=== PATIENT | female | born 1960 | race Caucasian/White ===

== ENCOUNTER → 2016-10-16 | Outpatient (CLI) | payer OTHER ==
[2016-10-16 13:52] LABS: ABSOLUTE BASOPHILS # (AUTO) 0.1 10^3/uL (0.0-0.2); ABSOLUTE EOSINOPHILS # (AUTO) 0.2 10^3/uL (0.0-0.6); ABSOLUTE LYMPHOCYTES (AUTO) 2.4 10^3/uL (0.5-4.7); ABSOLUTE MONOCYTES (AUTO) 0.6 10^3/uL (0.1-1.4); ABSOLUTE NEUT (AUTO) 5.5 10^3/uL (1.7-8.2); BASOPHILS % (AUTO) 0.7 % (0-2); EOSINOPHILS % (AUTO) 1.7 % (0-6); HEMOGLOBIN 12.7 g/dL (12.0-15.5); HGB HCT DIFFERENCE -0.9; LYMPHOCYTES % (AUTO) 27.3 % (13-45); MEAN CORPUSCULAR HEMOGLOBIN 27.9 pg (27.0-33.4); MEAN CORPUSCULAR HGB CONC 32.6 g/dL (32.0-36.0); MEAN CORPUSCULAR VOLUME 86 fl (80-97); MONOCYTES % (AUTO) 6.6 % (3-13); RED BLOOD COUNT 4.56 10^6/uL (3.72-5.28); RED CELL DISTRIBUTION WIDTH 14.4 % (11.5-14.0); SEGMENTED NEUTROPHILS % (AUTO) 63.7 % (42-78); WHITE BLOOD COUNT 8.7 10^3/uL (4.0-10.5)
== END ==
LOC: OD 12:32
PROVIDERS: ATTEND Specialist
DX: R10.9 Unspecified abdominal pain (principal); D50.9 Iron deficiency anemia, unspecified
CPT/HCPCS: 36415; 85025

== ENCOUNTER → 2016-10-22 | Outpatient (CLI) | payer OTHER ==
[2016-10-22 17:08] LABS: ALANINE AMINOTRANSFERASE 34 U/L (9-52); ALBUMIN 4.4 g/dL (3.5-5.0); ALKALINE PHOSPHATASE 135 U/L (38-126); ANION GAP 13 (5-19); ASPARTATE AMINO TRANSFERASE 24 U/L (14-36); BILIRUBIN,DIRECT 0.3 mg/dL (0.0-0.4); BILIRUBIN,TOTAL 0.8 mg/dL (0.2-1.3); BLOOD UREA NITROGEN 23 mg/dL (7-20); CALCIUM 9.8 mg/dL (8.4-10.2); CARBON DIOXIDE 22 mmol/L (22-30); CHLORIDE 109 mmol/L (98-107); CREATININE RESULT 0.87 mg/dL (0.52-1.25); GLUCOSE 91 mg/dL (75-110); POTASSIUM 4.5 mmol/L (3.6-5.0); SODIUM 144.4 mmol/L (137-145); TOTAL PROTEIN 7.4 g/dL (6.3-8.2)
== END ==
LOC: OD 16:17
PROVIDERS: ATTEND Specialist
DX: R10.9 Unspecified abdominal pain (principal); K76.0 Fatty (change of) liver, not elsewhere classified
CPT/HCPCS: 36415; 80053

== ENCOUNTER → 2016-11-20 | Outpatient (CLI) | payer OTHER ==
[2016-11-20 17:44] LABS: LIPASE 45.5 U/L (23-300)
--- NOTE | 2016-11-21 14:44 | HISTORY AND PHYSICAL E ---
History and Physical NAME: JUNIE GALLOWAY : 1960 AGE: 56Y ADMITTED: 11/20/2016 ROOM: REASON FOR ADMISSION: Patient for colon screening. HISTORY OF PRESENT ILLNESS: The patient is known to me. She had colonoscopy 2010 showing benign polyp. At this time, the patient is for colon screening. Her colon 2011 shows hemorrhoids and rectal polyps. She did have gastric bypass. She is having anemia, and they want us to recheck her colon, make sure she is not losing blood from her colon. She did have a gastric bypass, and now she is having anemia and they are unable to keep with her iron even with giving iron infusion. We did the gastric studies, barium. Now she is for colon exam. PAST SURGICAL HISTORY: 1. Gastric bypass 2007 in [place]. 2. Ventral hernia. 3. Tubal ligation. 4. The patient did have history of gastric bypass. MEDICATIONS: 1. Trazodone. 2. Nexium. 3. Zyrtec. 4. Motrin. 5. B12. ALLERGIES: SULFA. REVIEW OF SYSTEMS: Gastric bypass, dumping syndrome. PHYSICAL EXAMINATION: GENERAL: Pleasant, alert, oriented. VITAL SIGNS: Blood pressure 120/80, pulse 80, respirations 18, temperature is 98. HEAD, EYES, EARS, NOSE, THROAT: Normal. ABDOMEN: Soft. NEUROLOGIC: Negative. CONCLUSION: 1. Anemia. 2. Gastric bypass. 3. Colon screening. PLAN: Colonoscopy. DICTATING PHYSICIAN: ALDAIR SANCHEZ M.D. 1284M 2 Y#: [id number] ID: [id number] JOB#: [id number] ACCT: [id number] cc:ALDAIR SANCHEZ M.D. >
== END ==
LOC: OD 16:02
PROVIDERS: ATTEND Specialist
DX: R10.9 Unspecified abdominal pain (principal)
CPT/HCPCS: 36415; 82150; 82977; 83690; 83915

== ENCOUNTER 2016-11-29 09:18 | Day surgery (SDC) | payer OTHER ==
[~2016-11-29 09:18] MED LIST: EPINEPHRINE INJ 1 MG/10 ML DISP.SYRIN ONE; FENTANYL CITRATE INJ/PF 100 MCG/2 ML AMPUL ONE; FLUMAZENIL INJ 0.5 MG/5 ML VIAL IV ONE; GLUCAGON,HUMAN RECOMB 1 MG INJ ONE; GLYCOPYRROLATE INJ 0.4 MG/2 ML VIAL ONE; LIDOCAINE 2% JELLY 30 ML TUBE ONE; NALOXONE HCL INJ/PF 0.4 MG/1 ML SDV ONE; ONDANSETRON HCL INJ/PF 4 MG/2 ML SDV ONE
[2016-11-29] MEDS: MIDAZOLAM 2 MG/2 ML INJ ONE ×3 (10:34→10:42)
[2016-11-29 11:56] VITALS: BP 125/68
[2016-11-29 11:58] LABS: ABSOLUTE BASOPHILS # (AUTO) 0.1 10^3/uL (0.0-0.2); ABSOLUTE EOSINOPHILS # (AUTO) 0.1 10^3/uL (0.0-0.6); ABSOLUTE LYMPHOCYTES (AUTO) 2.6 10^3/uL (0.5-4.7); ABSOLUTE MONOCYTES (AUTO) 0.7 10^3/uL (0.1-1.4); ABSOLUTE NEUT (AUTO) 9.4 10^3/uL (1.7-8.2); BASOPHILS % (AUTO) 0.6 % (0-2); EOSINOPHILS % (AUTO) 1.2 % (0-6); HEMATOCRIT 40.3 % (36.0-47.0); HEMOGLOBIN 13.5 g/dL (12.0-15.5); HGB HCT DIFFERENCE 0.2; LYMPHOCYTES % (AUTO) 19.9 % (13-45); MEAN CORPUSCULAR HEMOGLOBIN 28.6 pg (27.0-33.4); MEAN CORPUSCULAR HGB CONC 33.4 g/dL (32.0-36.0); MEAN CORPUSCULAR VOLUME 86 fl (80-97); MONOCYTES % (AUTO) 5.5 % (3-13); RED BLOOD COUNT 4.71 10^6/uL (3.72-5.28); RED CELL DISTRIBUTION WIDTH 14.7 % (11.5-14.0); SEGMENTED NEUTROPHILS % (AUTO) 72.8 % (42-78); WHITE BLOOD COUNT 12.9 10^3/uL (4.0-10.5)
[2016-11-29 12:11] LABS: IRON 18.8 ug/dL (37-170)
--- NOTE | 2016-11-29 12:11 | OPERATIVE REPORT E ---
Operative Report NAME: JUNIE GALLOWAY : 1960 AGE: 56Y DATE OF SURGERY: 11/29/2016 ROOM: PREOPERATIVE DIAGNOSES: 1. Iron deficiency anemia. 2. History of gastric bypass. POSTOPERATIVE DIAGNOSIS: External hemorrhoids, mild, not bleeding. PROCEDURE: Colonoscopy to the cecum. SURGEON: ALDAIR SANCHEZ M.D. ANESTHESIA: Versed 2 and fentanyl 100. TISSUE REMOVED OR ALTERED: None. DESCRIPTION OF PROCEDURE: Rectal exam shows mild external hemorrhoids, not bleeding. Rectum, sigmoid, descending colon normal. Transverse colon normal. Ascending colon, cecum, ileocecal valve normal. Scope withdrawn from cecum, ascending, transverse, descending, sigmoid all the way to the rectum. CONCLUSION: 1. External hemorrhoids. No evidence of polyps. No evidence of bleeding. 2. Anemia, iron deficiency. Etiology undetermined. 3. Patient does have history of gastric bypass. Patient may need to have another upper endoscopy if it has not been done in the last 2 years. DICTATING PHYSICIAN: ALDAIR SANCHEZ M.D. 1211M 1126 PHY#: [id number] ID: [id number] JOB#: [id number] ACCT: [id number] cc:[facility] ALDAIR SANCHEZ M.D. >
--- NOTE | 2016-11-29 12:29 | DISCHARGE SUMMARY E ---
Discharge Summary NAME: JUNIE GALLOWAY : 1960 AGE: 56Y ADMITTED: 11/29/2016 DISCHARGED: 11/29/2016 HISTORY OF PRESENT ILLNESS: A 56-year-old female presented with iron deficiency anemia, history of gastric bypass. Patient referred for colonoscopy regarding question GI bleed in the colon. Today's colonoscopy was successful all the way to the cecum. I did not see any polyps or bleeding. There was some liquidity stool scattered all around the colon. Patient did have gastric bypass. Her colonoscopy did show mild external hemorrhoids. Her gastric bypass was done in [place]. DISCHARGE PLAN: I will repeat her CBC, B12, iron, ferritin, and folic acid. Consider upper endoscopy. DICTATING PHYSICIAN: ALDAIR SANCHEZ M.D. 1211M 1135 PHY#: [id number] ID: [id number] JOB#: [id number] ACCT: [id number] cc:[facility] ALDAIR SANCHEZ M.D. >
[2016-11-29 12:49] LABS: FERRITIN 83.2 ng/mL (11.1-264.0)
[2016-11-29 13:19] LABS: FOLATE 9.46 ng/mL (>2.76)
--- NOTE | 2016-11-29 19:03 | DISCHARGE SUMMARY E ---
Discharge Summary NAME: JUNIE GALLOWAY : 1960 AGE: 56Y ADMITTED: 11/29/2016 DISCHARGED: 11/29/2016 HOSPITAL COURSE: A 56-year-old female underwent colon screening for anemia. She did have gastric bypass in 2007 in [place]. Today's colonoscopy shows no polyps. No blood loss in the colon. DISCHARGE PLAN: Soft diet. Baseline CBC, serum iron, ferritin, and B12. Followup office visit in the next few days. Consider upper endoscopy. DICTATING PHYSICIAN: ALDAIR SANCHEZ M.D. 1211M 1532 PHY#: [id number] ID: [id number] JOB#: [id number] ACCT: [id number] cc:[facility] ALDAIR LORENZ M.D. >
== END 2016-11-29 11:55 | disposition home or self-care (01) ==
LOC: END 09:18
PROVIDERS: ATTEND Specialist
PROC: 0DJD8ZZ Inspection of Lower Intestinal Tract, Via Natural or Artificial Opening Endoscopic (ICD-10-PCS; principal; 2016-11-29 10:00)
DX: Z12.11 Encounter for screening for malignant neoplasm of colon (principal); K64.4 Residual hemorrhoidal skin tags; D50.9 Iron deficiency anemia, unspecified; K91.1 Postgastric surgery syndromes; Z79.899 Other long term (current) drug therapy; Z88.2 Allergy status to sulfonamides; Z79.1 Long term (current) use of non-steroidal anti-inflammatories (NSAID); Z79.891 Long term (current) use of opiate analgesic
CPT/HCPCS: 45378; 36415; 82962; 82607; 82728; 82746; 83540; 85025; J2250; J3010; J1610; J2405; J0171; J2310; J3490

== ENCOUNTER 2016-12-13 08:23 | Day surgery (SDC) | payer OTHER ==
--- NOTE | 2016-12-06 11:59 | HISTORY AND PHYSICAL E ---
History and Physical NAME: JUNIE GALLOWAY : 1960 AGE: 56Y ADMITTED: 12/13/2016 ROOM: CHIEF COMPLAINT: 1. Iron deficiency anemia. 2. Gastric bypass. Patient had upper endoscopy 04/19/2014, shown as follows: The patient did have barium swallow upper GI. She did have prior gastric bypass, small gastric fundal pouch, prompt emptying, small hiatus hernia. The patient presented at this time regarding upper endoscopy. The upper scope was done in 2015 and shows as follows: Esophagus shows a small hiatus hernia, stomach with small gastric pouch, biopsy obtained for H. pylori. The patient has no obstruction. I did not see any bleeding. Patient continued to have iron deficiency anemia. She did have CT scan done 10/11/2016, shows as follows: There have been no significant changes in the abdominal CT from previous exam. She is status post gastric bypass, cholecystectomy, postsurgical clips. The patient has supraumbilical abdominal wall fat containing hernias and change. Bowel demonstrated no evidence of bowel wall thickening or obstruction. Appendix is visualized in the right lower quadrant. No evidence of inflammation. Impression is stable CT, previous gastric bypass, cholecystectomy, stable anterior abdominal wall. At that time, white count 8, hemoglobin 12, with a hematocrit of 39. Another white count 8.7, hemoglobin 12. At the present time, the patient's hemoglobin is 13 with hematocrit of 40, white count 12. CONCLUSION: 1. Anemia. 2. Gastric bypass. PLAN: Upper scope scheduled for 12/13/2016. DICTATING PHYSICIAN: ALDAIR SANCHEZ M.D. 5075M 1615 Y#: [id number] ID: [id number] JOB#: [id number] ACCT: [id number] cc:[facility] ALDAIR SANTANA M.D. >
[~2016-12-13 08:23] MED LIST changes: -GLUCAGON,HUMAN RECOMB 1 MG INJ ONE; -LIDOCAINE 2% JELLY 30 ML TUBE ONE
[2016-12-13] MEDS: MIDAZOLAM 2 MG/2 ML INJ ONE ×2 (09:19→09:23)
--- NOTE | 2016-12-13 10:28 | DISCHARGE SUMMARY E ---
Discharge Summary NAME: JUNIE GALLOWAY : 1960 AGE: 56Y ADMITTED: 12/13/2016 DISCHARGED: PROCEDURES: Esophagoscopy, gastropathy, duodenoscopy. HISTORY: The patient is 56, presented for evaluation of anemia. She did have gastric bypass. She underwent above scope today shows gastric pouch shows no ulcers, mild esophagitis. Stomach looks with no evidence of ulcers, no bleeding. Afferent loop gastric bypass thoroughly visualized shows no ulcers, no bleeding, no malignancy. CONCLUSION: Operative scope shows no bleeding, no ulcers, gastroenterostomy patent with no marginal ulcers, no bleeding. Gastric bypass, anemia, EGD no bleeding. Discussed colonoscopy if it is not done in the last few years. DISCHARGE PLAN: Assurance. Continue present management. Patient to see us in the office in the next few days. The patient to consider colonoscopy if this has not been done. MEDICATIONS: Continue Desyrel, Flonase, Glucophage, Lipitor, Topamax and Zoloft. ALLERGIES: Sulfa. DICTATING PHYSICIAN: ALDAIR SANCHEZ M.D. 5141M 1003 PHY#: [id number] ID: [id number] JOB#: [id number] ACCT: [id number] cc:ALDAIR SANCHEZ M.D. >
[2016-12-13 10:45] VITALS: BP 95/58
--- NOTE | 2016-12-13 13:05 | OPERATIVE REPORT E ---
Operative Report NAME: JUNIE GALLOWAY : 1960 AGE: 56Y DATE OF SURGERY: 12/13/2016 ROOM: PREOPERATIVE DIAGNOSES: 1. Anemia. 2. Gastric bypass. POSTOPERATIVE DIAGNOSES: 1. Anemia. 2. Gastric bypass. 3. No ulcers, no bleeding. PROCEDURE: Esophagoscopy, gastroscopy, duodenoscopy. SURGEON: ALDAIR SANCHEZ M.D. ANESTHESIA: Versed 2 mg and Fentanyl 100 mcg. TISSUE REMOVED OR ALTERED: Negative. DESCRIPTION OF PROCEDURE: The baby scope passed under guided vision with no difficulties. Esophagoscopy: Junction at 34 cm. No evidence of ulcers, no bleeding, normal esophagus. Gastroscopy: Small gastric pouch. No evidence of ulcers. No evidence of bleeding. Gastric evaluation shows small gastric pouch with no ulcers. Duodenoscopy: The patient has gastroenterostomy. Afferent and efferent loops are visualized. Shows no bleeding, no ulcers. The patient tolerated the procedure well and was discharged to her room in stable condition. CONCLUSIONS: 1. Anemia, etiology undetermined. 2. Gastric bypass. 3. No ulcers and no bleeding. DICTATING PHYSICIAN: ALDAIR SANCHEZ M.D. 1209M 0949 [facility]#: [id number] ID: [id number] JOB#: [id number] ACCT: [id number] cc:[facility], [facility] ALDAIR SNATANA M.D. >
== END 2016-12-13 10:45 | disposition home or self-care (01) ==
LOC: END 08:23
PROVIDERS: ATTEND Specialist
PROC: 0DJ08ZZ Inspection of Upper Intestinal Tract, Via Natural or Artificial Opening Endoscopic (ICD-10-PCS; principal; 2016-12-13 09:00)
DX: D50.9 Iron deficiency anemia, unspecified (principal); Z98.84 Bariatric surgery status; Z88.2 Allergy status to sulfonamides; Z79.899 Other long term (current) drug therapy
CPT/HCPCS: 43235; 82962; J2250; J3010; J2405; J0171; J2310; J3490

== ENCOUNTER 2016-12-13 22:30 | Emergency (ER) | payer OTHER ==
[2016-12-13] MEDS ORDERED: NORMAL SALINE 1000 ML 1,000 ML IV ONE ×3 (23:00→23:46)
--- NOTE | 2016-12-13 23:00 | ER Document Report ---
ED General - General Mode of Arrival: Wheelchair Information source: Patient TRAVEL OUTSIDE OF THE [place] IN LAST 30 DAYS: No - HPI Onset: Just prior to arrival - Refer to HPI notes Similar symptoms previously: No Recently seen / treated by doctor: No <PAVAN DOLAN - Last Filed: 12/13/16 23:51> <PETER PORTILLO - Last Filed: 12/14/16 02:57> - General Chief Complaint: Syncope Stated Complaint: SYNCOPE Time Seen by Provider: 12/13/16 22:49 Notes: Patient is a 56 year old female presenting to the emergency department for syncope, and abdominal pain. Patient is present with her daughter and grandchildren. Patient states she had an endoscopy today and was discharged earlier today with a blood pressure of 96/51. Patient went home and tried to eat something and then had nausea, vomiting, diarrhea, dizziness/lightheadedness , and weakness. EMS came to the house and stood the patient up to check orthostatic pressures when the patient felt faint and had a syncopal episode. Patient was given 300 mL NS from EMS and her pressure at arrival to the ED was 150/82. Patient did not take her blood pressure medications today. Patient states she has had diarrhea all day which is more than her usual; patient states she has had diarrhea after she eats for the past several months which has not been looked into for an explanation. Patient has a history of iron deficiency anemia and daughter states that the patient receives iron infusions. Daughter states the patient's hemoglobin has been in the 7s but according to [facility] records the patient's hemoglobin levels have not been that low; patient's hemoglobin level was 13.5 on 11/29/16. Patient is followed with [facility] and sees Dr. Sepulveda with Internal Medicine. Patient had a colonoscopy a few weeks ago which showed no sign of bleeding and her endoscopy today also showed no sign of bleeding. (PAVAN DOLAN) - Related Data Allergies/Adverse Reactions: Sulfa (Sulfonamide Antibiotics) Adverse Reaction (Intermediate, Verified 11:41) bad rash Past Medical History - General Information source: Patient, Relative - daughter - Social History Smoking Status: Never Smoker Family History: CAD - Father and mother Patient has suicidal ideation: No Patient has homicidal ideation: No - Medical History Medical History: Other - iron deficiency anemia - Past Medical History Cardiac Medical History: Reports: Hx Hypercholesterolemia, Hx Hypertension Pulmonary Medical History: Reports: Hx Pneumonia Endocrine Medical History: Reports: Hx Diabetes Mellitus Type 2 GI Medical History: Reports: Hx Colonoscopy - 11/27, Hx Endoscopy - 12/13/16 Musculoskeltal Medical History: Reports Hx Arthritis - OA Psychiatric Medical History: Reports: Hx Depression Past Surgical History: Reports: Hx Cholecystectomy, Hx Gastric Bypass Surgery, Hx Orthopedic Surgery - R ankle, Hx Tubal Ligation - Immunizations Hx Diphtheria, Pertussis, Tetanus Vaccination: Yes Hx Pneumococcal Vaccination: 06/13/16 <PAVAN DOLAN - Last Filed: 12/13/16 23:51> Review of Systems - Review of Systems Constitutional: No symptoms reported EENT: No symptoms reported Cardiovascular: See HPI, Syncope, Dizziness, Lightheaded Respiratory: No symptoms reported Gastrointestinal: See HPI, Abdominal pain, Diarrhea, Nausea, Vomiting Genitourinary: No symptoms reported Female Genitourinary: No symptoms reported Musculoskeletal: No symptoms reported Skin: No symptoms reported Hematologic/Lymphatic: No symptoms reported Neurological/Psychological: No symptoms reported -: Yes All other systems reviewed and negative <PAVAN DOLAN - Last Filed: 12/13/16 23:51> Physical Exam - Vital signs Interpretation: Normal - General General appearance: Appears well, Alert In distress: Mild - HEENT Head: Normocephalic, Atraumatic Eyes: Normal Pupils: PERRL Mucous membranes: Moist - Respiratory Respiratory status: No respiratory distress Chest status: Nontender Breath sounds: Normal Chest palpation: Normal - Cardiovascular Rhythm: Regular Heart sounds: Normal auscultation Murmur: No - Abdominal Inspection: Obese Distension: No distension Bowel sounds: Normal Tenderness: Tender - diffuse mid abdominal pain and tenderness with palpation Organomegaly: No organomegaly - Back Back: Normal, Nontender - Extremities General upper extremity: Normal inspection, Normal ROM, Normal strength General lower extremity: Normal inspection, Normal ROM, Normal strength. No: Edema - Neurological Neuro grossly intact: Yes Cognition: Normal Orientation: AAOx4 Neal Coma Scale Eye Opening: Spontaneous Neal Coma Scale Verbal: Oriented Neal Coma Scale Motor: Obeys Commands Neal Coma Scale Total: 15 Speech: Normal - Psychological Associated symptoms: Normal affect, Normal mood - Skin Skin Temperature: Warm Skin Moisture: Dry <PAVAN DOLAN - Last Filed: 12/13/16 23:51> <PETER PORTILLO - Last Filed: 12/14/16 02:57> - Vital signs Vitals: Temp Pulse Resp BP Pulse Ox 98.3 F 86 20 150/82 H 97 12/13/16 22:55 12/13/16 22:55 12/13/16 22:55 12/13/16 22:55 12/13/16 22:55 Course - Laboratory Result Diagrams: 12/13/16 23:22 12/13/16 23:22 <PAVAN DOLAN - Last Filed: 12/13/16 23:51> - Laboratory Result Diagrams: 12/13/16 23:22 12/13/16 23:22 - Diagnostic Test Radiology reviewed: Image reviewed, Reports reviewed - Nonspecific bowel gas pattern. Hepatomegaly. Hepatomegaly was seen on ultrasound on a previous admission. - EKG Interpretation by Me EKG shows normal: Sinus rhythm, Sandy, Intervals, QRS Complexes. abnormal: ST-T Waves - Borderline T abnormalities in the inferior leads Rate: Normal - 82 Rhythm: NSR When compared to previous EKG there are: No significant change <PETER PORTILLO - Last Filed: 12/14/16 02:57> - Re-evaluation Re-evalutation: 12/14/16 02:51 Patient has had no diarrhea since arrival over 4 hours ago. She has received IV fluids, is urinating quite a bit. She states she does feel much better now after the IV fluids. He is comfortable going home and drinking plenty of fluids and resting. (PETER PORTILLO) - Vital Signs Vital signs: Temp Pulse Resp BP Pulse Ox 98.3 F 86 14 118/64 98 12/13/16 22:55 12/13/16 22:55 12/14/16 02:01 12/14/16 02:01 12/14/16 02:01 - Laboratory Laboratory results interpreted by me: 12/13/16 12/13/16 12/13/16 23:15 23:22 23:22 WBC 15.5 H RDW 14.8 H Seg Neutrophils % 85.3 H Lymphocytes % 8.0 L Absolute Neutrophils 13.3 H Chloride 110 H Carbon Dioxide 19 L BUN 28 H Est GFR (Non-Af Amer) 55 L Glucose 135 H Alkaline Phosphatase 136 H Urine Blood SMALL H Ur Leukocyte Esterase TRACE H Discharge <PAVAN DOLAN - Last Filed: 12/13/16 23:51> <PETER PORTILLO - Last Filed: 12/14/16 02:57> - Discharge Clinical Impression: Nausea, vomiting and diarrhea, Dehydration, Syncope due to orthostatic hypotension Hypotension Qualifiers: Hypotension type: unspecified hypotension type Qualified Code(s): I95.9 - Hypotension, unspecified Condition: Stable Disposition: HOME, SELF-CARE Additional Instructions: Gastroenteritis: You most likely have gastroenteritis. This is an irritation of the stomach and intestinal tract. It's usually caused by a virus, but can also be caused by bacteria, toxins that cause food poisoning, or excessive alcohol intake. Symptoms may include fever, painful abdominal cramps, nausea, vomiting , and diarrhea. Start with small amounts (two to six ounces) of clear liquids (soft drinks , herb teas, broth, etc). Try to take fluids frequently even if you are vomiting, to prevent dehydration. When liquids are being consumed successfully , advance to small amounts of bland food (mashed potato, toast) for 6 - 12 hours. Gastroenteritis rarely requires medication. It goes away by itself. Use good handwashing so you don't spread germs. Wash underwear in very hot water. If symptoms are severe, talk to the doctor. Call your physician if blood appears in your vomitus or stool, if vomiting lasts longer than 24 hours, if the abdominal pain worsens or becomes localized to one area, or if you develop high fever. Dehydration: Dehydration can result from vomiting or diarrhea, fever, or decreased intake of fluids. If severe, hospitalization and intravenous fluids may be required. Most cases are treated at home with fluids by mouth. For the next 24 hours, drink lots of clear fluids. In mild cases, this can be soda pop or sports drinks. For more severe dehydration, the doctor may recommend special fluids such as Pedialyte or Lytren. Try to get three liters ( 3 quarts) of fluid per day. If vomiting occurs, continue to drink the fluids frequently (every 15 to 20 minutes), but in small amounts (one or two ounces). Depending on the type of dehydration, the doctor may prescribe antinausea medicine or potassium replacements. Call the doctor or return for re-examination if you become progressively weak, vomit repeatedly, or have other new symptoms. //////////////////////////////////////////////////////////////////////////////// //////////////////////////////////////////////////////////// Drink plenty of cool clear liquids today. Rest. Try Imodium AD for diarrhea if needed. Follow-up with your doctor if not improving. RETURN TO THE EMERGENCY ROOM IF ANY NEW OR WORSENING SYMPTOMS. Scribe Attestation: 12/14/16 02:55 I personally performed the services described in the documentation, reviewed and edited the documentation which was dictated to the scribe in my presence, and it accurately records my words and actions. (PETER PORTILLO) Scribe Documentation - Scribe Written by Scribpooja:: Kirt Mendez 12/13/16 23:52 acting as scribe for :: Dayne <PAVAN DOLAN - Last Filed: 12/13/16 23:51>
[2016-12-13 23:34] LABS: APPEARANCE,URINE SLIGHTLY-CLOUDY; BILIRUBIN,URINE NEGATIVE (NEGATIVE); CALCIUM OXALATE CRYSTALS,URINE FEW /HPF; GLUCOSE, URINE NEGATIVE (NEGATIVE); KETONES,URINE NEGATIVE (NEGATIVE); LEUKOCYTE ESTERASE,URINE TRACE (NEGATIVE); NITRITE,URINE NEGATIVE (NEGATIVE); PROTEIN,URINE NEGATIVE (NEGATIVE); URINE SPECIFIC GRAVITY 1.027; UROBILINOGEN,URINE NEGATIVE mg/dL (<2.0)
[2016-12-13 23:39] LABS: ABSOLUTE BASOPHILS # (AUTO) 0.1 10^3/uL (0.0-0.2); ABSOLUTE LYMPHOCYTES (AUTO) 1.2 10^3/uL (0.5-4.7); ABSOLUTE MONOCYTES (AUTO) 0.9 10^3/uL (0.1-1.4); ABSOLUTE NEUT (AUTO) 13.3 10^3/uL (1.7-8.2); BASOPHILS % (AUTO) 0.5 % (0-2); EOSINOPHILS % (AUTO) 0.2 % (0-6); HEMATOCRIT 41.6 % (36.0-47.0); HEMOGLOBIN 13.3 g/dL (12.0-15.5); HGB HCT DIFFERENCE -1.7; MEAN CORPUSCULAR HEMOGLOBIN 28.3 pg (27.0-33.4); MEAN CORPUSCULAR HGB CONC 32.1 g/dL (32.0-36.0); MEAN CORPUSCULAR VOLUME 88 fl (80-97); RED BLOOD COUNT 4.71 10^6/uL (3.72-5.28); RED CELL DISTRIBUTION WIDTH 14.8 % (11.5-14.0); SEGMENTED NEUTROPHILS % (AUTO) 85.3 % (42-78); WHITE BLOOD COUNT 15.5 10^3/uL (4.0-10.5)
[2016-12-13 23:44] LABS: PROTHROMBIN TIME 12.7 SEC (11.4-15.4)
[2016-12-13 23:50] LABS: ALANINE AMINOTRANSFERASE 38 U/L (9-52); ALBUMIN 3.9 g/dL (3.5-5.0); ALKALINE PHOSPHATASE 136 U/L (38-126); ANION GAP 13 (5-19); ASPARTATE AMINO TRANSFERASE 19 U/L (14-36); BILIRUBIN,DIRECT 0.4 mg/dL (0.0-0.4); BILIRUBIN,TOTAL 0.6 mg/dL (0.2-1.3); BLOOD UREA NITROGEN 28 mg/dL (7-20); CALCIUM 9.1 mg/dL (8.4-10.2); CARBON DIOXIDE 19 mmol/L (22-30); CHLORIDE 110 mmol/L (98-107); CREATINE KINASE 66 U/L (30-135); CREATININE RESULT 1.03 mg/dL (0.52-1.25); GLUCOSE 135 mg/dL (75-110); LIPASE 51.3 U/L (23-300); POTASSIUM 4.3 mmol/L (3.6-5.0); SODIUM 141.7 mmol/L (137-145); TOTAL PROTEIN 7.2 g/dL (6.3-8.2)
[2016-12-14 00:01] LABS: CREATINE KINASE MB 0.97 ng/mL (<4.55)
[2016-12-14 00:03] LABS: TROPONIN I < 0.012 ng/mL
--- NOTE | 2016-12-14 01:18 | RADIOLOGY REPORT (SQ) ---
EXAM DESCRIPTION: ACUTE ABDOMEN SERIES COMPLETED DATE/TIME: 12/14/2016 12:20 am REASON FOR STUDY: N,V,D near syncope, S/P EGD done today COMPARISON: Chest x-ray 04/04/2015, CT abdomen and pelvis 10/19/2014. NUMBER OF VIEWS: Three views. TECHNIQUE: Frontal chest, supine abdomen and upright/decubitus abdomen radiographic images acquired. LIMITATIONS: None. FINDINGS: CHEST: No consolidation, pleural effusion or pneumothorax. FREE AIR: None. BOWEL GAS PATTERN: Multiple air-fluid levels within nondilated bowel loops. Air is seen at the rectu m. CALCIFICATIONS: No suspicious calcifications. HARDWARE: Surgical clips in the right upper quadrant. SOFT TISSUES: The liver is enlarged measuring approximately 27 cm in craniocaudal dimension. BONES: Degenerative changes in the spine. IMPRESSION: Nonspecific bowel gas pattern. Hepatomegaly. TECHNICAL DOCUMENTATION: JOB ID: [id number] 2010 [employer]- All Rights Reserved
[2016-12-14 03:03] VITALS: BP 92/57
--- NOTE | 2016-12-14 10:53 | EKG REPORT ---
SEVERITY:- BORDERLINE ECG - SINUS RHYTHM BORDERLINE T ABNORMALITIES, INFERIOR LEADS : Confirmed by: Sofya Tracey 14-Dec-2016 10:53:06
== END 2016-12-14 03:02 | disposition home or self-care (01) ==
LOC: ER 22:30
DX: I95.1 Orthostatic hypotension (principal); I95.9 Hypotension, unspecified; R11.2 Nausea with vomiting, unspecified; R19.7 Diarrhea, unspecified; E86.0 Dehydration; R55 Syncope and collapse; R10.9 Unspecified abdominal pain; R42 Dizziness and giddiness; R53.1 Weakness
CPT/HCPCS: 93005; 99284; 96360; 96361; 86900; 86901; 36415; 82553; 86850; 82550; 83690; 85025; 85610; 80053; 81001; 84484; 74022; 93010; J7030